=== PATIENT | female | born 1950 | race African-American/Black ===

== ENCOUNTER → 2019-02-20 | Outpatient (CLI) | payer MEDICARE, OTHER ==
[2017-06-30 11:00] VITALS: BP 120/75
[~2019-02-20] MED LIST: AMIT25TA PO; ASPI325T8 PO; CYAN1TAB21 PO; ESTR0.5T PO; FERR325T14 PO; LISI-334 PO; METF500T16 PO
--- NOTE | 2019-02-20 13:15 | RAD ---
MRI of the cervical spine without contrast 02/20/2019 CLINICAL HISTORY: Low back pain worsening over last several months. TECHNIQUE: Unenhanced T1-weighted and T2-weighted sagittal and axial and inversion recovery sagittal images of the lumbar spine were obtained. FINDINGS: Mild S-shaped curvature of the thoracolumbar spine is seen. Degenerative signal changes are seen involving all of the disks of the lumbar spine. Degenerative signal changes are seen within the marrow surrounding these discs. The conus medullaris is within normal limits in morphology, position, and signal characteristics. A 1.4 cm perineural cyst is seen within the sacral spinal canal. At the L1-2, L2-3 and L3-4 disc spaces there are minimal generalized disc bulge. Degenerative changes are seen involving the facet joints bilaterally. There is mild ligamentum flavum hypertrophy bilaterally. These findings do not result in significant central spinal canal or neural foraminal stenosis. At the L4-5 disc space there is a mild generalized disc bulge. Superimposed on this disc bulge is a left paracentral focal disc protrusion. This measures 2 mm in AP diameter. Degenerative changes are seen involving the facet joints bilaterally. There is moderate ligamentum flavum hypertrophy bilaterally. There is prominence of the posterior epidural fat. These findings when combined result in mild central spinal canal stenosis. No neural foraminal stenosis is seen. At the L5-S1 disc space there is a mild generalized disc bulge. Degenerative changes are seen involving the facet joints bilaterally. There is mild ligamentum flavum hypertrophy bilaterally. These findings when combined do not result in significant central spinal canal stenosis. No neural foraminal stenosis is seen. IMPRESSION: The changes of degenerative disc disease are seen involving the lumbar spine. These findings result in mild central spinal canal stenosis at L4-5. No neural foraminal stenosis is seen. Electronically signed by: Aiden Cruz MD (02/20/2019 1:12 PM) [email or web address]
== END | disposition home or self-care (01) ==
LOC: MRI 10:58
PROVIDERS: ATTEND Family Medicine
DX: M47.27 Other spondylosis with radiculopathy, lumbosacral region (principal); M51.37 Other intervertebral disc degeneration, lumbosacral region; M48.07 Spinal stenosis, lumbosacral region; M51.26 Other intervertebral disc displacement, lumbar region
CPT/HCPCS: 72148

== ENCOUNTER → 2019-05-25 | Outpatient (CLI) | payer MEDICARE, OTHER ==
[2017-06-30 11:00] VITALS: BP 120/75
[~2019-05-25] MED LIST changes: +BUPIVACAINE MPF 0.25% 10 ML VIAL. ONE; +DOCU-150 PO; +IOHEXOL 180 MG/ML 10 ML VIAL. ONE; +methylPREDNISolone ACETATE 40 MG/ML VIAL. ONE; +methylPREDNISolone ACETATE 80 MG/ML VIAL. ONE
--- NOTE | 2019-05-25 20:31 | PAIN ---
DATE OF SERVICE: 05/25/2019 INITIAL CONSULTATION FOR PAIN CLINIC CHIEF COMPLAINT: Low back pain. HISTORY OF PRESENT ILLNESS: This is a 69-year-old female who presents with history of pain in the low back for about 3 years, worse over the past 6-7 months. The patient reports it is worse with walking, standing, and changing positions and better with sitting or lying down. It does not awaken her from sleep at night. It is mainly across the low back itself but into the legs and into the thighs occasionally. The patient reports into the lateral anterior thighs becoming more noticeable, but mainly just across the low back. The patient reports it is intermittent in intensity, worse with walking and standing as noted, and better with sitting or lying down without specific radiation currently. The patient rates her disability rating from 0-10 with 10 being the worst, at 6 with family home responsibilities and recreation, 5 with social activity and occupation, 4 with sexual behavior, 3 with self-care, and 0 with life support activities. The patient did have MRI scan of the lumbar spine showing some degenerative disk disease involving the entire lumbar spine, mild central spinal canal stenosis at L4-5, and mild generalized disk bulge at L3-4, L4-5, and L5-S1 with a left paracentral focal disk protrusion at L4-5 as well. The patient reports no loss of motor function, but significant fatigability of both the lower extremities when ambulating. PAST MEDICAL HISTORY: Significant for type 2 diabetes, hypertension, and arthritis. PREVIOUS SURGERY: Includes hysterectomy. CURRENT MEDICATIONS: Include lisinopril, metformin, and docusate. ALLERGIES: The patient has no known drug allergies. FAMILY HISTORY: Significant for no major medical problems or conditions that she lists. SOCIAL HISTORY: The patient does not smoke, quit many years ago. Drinks socially, maybe once every 5 to 6 weeks. She does not use any illegal, illicit, or recreational drugs. She is , lives with her spouse, lives locally in [place] and is currently retired. REVIEW OF SYSTEMS: All systems reviewed and otherwise negative. It is complete, full, and well documented on the patient's chart. PHYSICAL EXAMINATION: VITAL SIGNS: The patient's blood pressure is 154/75, pulse 87, respirations 18, temperature 97.9 degrees Fahrenheit, height is 5 feet 2 inches, and weight 185 pounds. GENERAL: The patient is awake, alert, and oriented, appropriate and very pleasant demeanor. The patient is accompanied by her spouse. HEENT: Normocephalic and atraumatic. Extraocular movements are intact and symmetrical. Oral cavity shows mucous membranes moist and pink. Dentition is intact. NECK: Anterior throat supple without palpable lymphadenopathy noted. Swallow reflex symmetrical. CHEST: Normal on inspection. Breath sounds are clear bilaterally. HEART: S1, S2 clear. No murmurs auscultated. ABDOMEN: Soft, nontender, and nondistended. BACK: Spine grossly in the midline, slight exaggerated thoracic kyphosis and minor flattening of lumbar lordotic curvature. Lumbar paraspinous muscle shows symmetrical on inspection and with palpation shows some moderate tenderness in the inferior aspect of the lumbar paraspinous musculature but only diffusely without radiation. The patient has good rotational motion of lumbar spine both laterally as well as extension and flexion with some moderate tenderness with extension noted in the low back itself and forward flexion performed at 45 degrees without difficulty. Right and left lateral rotation greater than 10 degrees is mildly tender bilaterally but equal. The patient's spinous processes are nontender with palpation of the sacroiliac regions and posterior superior iliac spines. EXTREMITIES: The patient's lower extremities show deep tendon reflexes at 2+ in the patellar and 1+ in tendo-calcaneus tendons. Motor exam is strong with 5/5 dorsiflexion, extension, quadriceps, and hamstring flexion. Peripheral pulses are 1+ in posterior tibia. No peripheral edema is noted. Lower extremities are warm and dry to touch, equal in color and appearance. Straight leg raise noted to be negative for reproduction of radicular symptoms bilaterally. Gaenslen and David maneuvers are negative bilaterally as well. The patient is able to stand, stand on her toes without significant difficulty or loss of balance, walks with a normal appearing gait, does not appear to favor the right or left lower extremity significantly with ambulating, not using any assistive devices. SKIN: Warm and dry. Good turgor. No edema. No sores, rashes, or bruising throughout. IMPRESSION: 1. This is a 69-year-old female with approximate 3-year history of increasing pain in low back and the bilateral lower extremities to some extent, worse with extension of the lumbar spine now, consistent with some facet syndrome of the lumbar spine. 2. MRI scan of lumbar spine as noted. 3. Arthritis. 4. Hypertension. PLAN: Options were discussed with the patient including conservative medical management, physical therapy, and interventional techniques and she would like to pursue interventional techniques. We discussed bilateral L4-5 and L5-S1 facet joint injections using description as well as anatomical models to describe the procedure. Risks were then discussed including but not limited to bleeding, infection, possibility of epidural hematoma, subsequent neurological compromise, dural puncture, headaches, spinal cord and/or nerve damage, side effects of steroid medication, and poor results regarding pain control. The patient understands and wished to proceed. The patient will return to clinic in approximately 2 weeks for followup. She was counseled on return appointment, activity level, and side effects to be aware of. DIAGNOSIS: Lumbar and lumbosacral spondylosis. PROCEDURE: Bilateral L4-5 and L5-S1 facet joint injection using C-arm fluoroscopic guidance under sterile prep and drape using local anesthetic. MEDICATION INJECTED: A total of 120 mg of Depo-Medrol plus 4 mL of 0.25% bupivacaine after negative aspiration at each injection site and a 2 mL total of contrast. CONDITION AT DISCHARGE: Stable. The patient tolerated the procedure well and had no complications. JAMES MACE MD DR: MANUEL/anjelica JOB#: [id number] / [id number] ANGELO Garza DO
== END ==
LOC: PNCL 08:56
PROVIDERS: ATTEND Anesthesiology
DX: M47.817 Spondylosis without myelopathy or radiculopathy, lumbosacral region (principal); I10 Essential (primary) hypertension; E11.9 Type 2 diabetes mellitus without complications; Z90.710 Acquired absence of both cervix and uterus; Z87.891 Personal history of nicotine dependence; Z72.89 Other problems related to lifestyle; Z87.39 Personal history of other diseases of the musculoskeletal system and connective tissue; Z79.84 Long term (current) use of oral hypoglycemic drugs
CPT/HCPCS: 64493; 64494; J1030; J1040; J3490; Q9965

== ENCOUNTER → 2019-06-08 | Outpatient (CLI) | payer MEDICARE, OTHER ==
[2017-06-30 11:00] VITALS: BP 120/75
[~2019-06-08] MED LIST changes: -BUPIVACAINE MPF 0.25% 10 ML VIAL. ONE; -IOHEXOL 180 MG/ML 10 ML VIAL. ONE; -methylPREDNISolone ACETATE 40 MG/ML VIAL. ONE; -methylPREDNISolone ACETATE 80 MG/ML VIAL. ONE
--- NOTE | 2019-06-08 11:31 | PAIN ---
DATE OF SERVICE: 06/08/2019 PROGRESS NOTE FOR PAIN CLINIC DIAGNOSES: Lumbar spinal stenosis, lumbar degenerative disk disease, and lumbar and lumbosacral spondylosis. HISTORY OF PRESENT ILLNESS: The patient is a 69-year-old female who returns for followup status post bilateral lumbar facet injections, L4-L5 and L5-S1. The patient reports she did very well about 95% improvement and the pain is still staying away to this day. The patient reported about 2 weeks since the injection. The patient reports she is sleeping much better, doing household activities with greater ease and comfort. It does not awaken her from sleep at night. The patient reports it is doing quite a bit better. She had one incident about a week ago where she was carrying some groceries from the car to the house with several trips walking and it caused some pain in the back, but it subsided after about 30 minutes. The patient reports by the next day, the pain was fine and well controlled. The patient reports no new motor or sensory deficits, no new bowel or bladder incontinence. Rates her pain as 5 on a scale of 10 at its worst over the past week and while also carrying groceries, otherwise is 0 on average and 0 at its least and is 0 today. The patient reports it is shooting pain across the low back at times and some noticeable pain in the right leg on the lateral anterior thigh, but only infrequently. The patient reports no new motor or sensory deficits, no new bowel or bladder incontinence or other complaints. PHYSICAL EXAMINATION: VITAL SIGNS: The patient's blood pressure 163/98, pulse 81, respirations 16, temperature 97.5 degrees Fahrenheit, weight is 186 pounds. GENERAL: The patient is awake, alert, oriented, appropriate, very pleasant demeanor. HEENT: Shows normocephalic, atraumatic. Extraocular movements are intact and symmetrical. Oral cavity: Mucous membranes moist and pink. Dentition is intact. NECK: Shows anterior throat supple without palpable lymphadenopathy noted. Swallow reflex symmetrical. CHEST: Shows normal on inspection. Breath sounds clear to auscultation bilaterally. HEART: Shows S1, S2 clear. No murmurs auscultated. ABDOMEN: Obese, soft, nontender, nondistended. No palpable organomegaly is noted. No rebound or guarding demonstrated. BACK: Shows spine grossly in the midline. Lumbar paraspinous muscle shows symmetrical on inspection, on palpation shows some moderate tenderness diffusely, but only diffusely bilaterally without significant radiation. The patient has good rotational motion of lumbar spine, both laterally as well as extension and flexion with some mild tenderness with extension, but not with rotation right or left or with forward flexion. EXTREMITIES: Lower extremities show deep tendon reflexes 2+ in the patellar, 1+ tendo-calcaneus tendons. Motor exam is strong with 5/5 dorsiflexion, extension, quadriceps and hamstring flexion symmetrical. Peripheral pulses are 1+ posterior tibial. No peripheral edema is noted bilaterally. Options were discussed with the patient. The patient's old chart was reviewed as her current medication regimen updated. Current review of systems updated today as well and we will proceed with holding any further injections at this time as the patient is usually doing quite a bit better and would like to hold on any further interventions. We asked her to increase her activity as tolerated. The patient will return to the clinic at this time on as needed basis. JAMES MACE MD DR: MANUEL/anjelica JOB#: [id number] / [id number]
== END | disposition home or self-care (01) ==
LOC: PNCL 10:06
PROVIDERS: ATTEND Anesthesiology
DX: M48.061 Spinal stenosis, lumbar region without neurogenic claudication (principal); M51.36 Other intervertebral disc degeneration, lumbar region; M47.816 Spondylosis without myelopathy or radiculopathy, lumbar region; E66.9 Obesity, unspecified
CPT/HCPCS: G0463

== ENCOUNTER → 2019-09-25 | Outpatient (CLI) | payer MEDICARE, OTHER ==
[2017-06-30 11:00] VITALS: BP 120/75
[~2019-09-25] MED LIST changes: +IOHEXOL 180 MG/ML 10 ML VIAL. ONE; +methylPREDNISolone ACETATE 40 MG/ML VIAL. ONE; +methylPREDNISolone ACETATE 80 MG/ML VIAL. ONE
--- NOTE | 2019-09-25 12:20 | PAIN ---
DATE OF SERVICE: PROGRESS NOTE FOR PAIN CLINIC DIAGNOSES: Lumbar radiculopathy with lumbar spinal stenosis, lumbar degenerative disk disease and lumbar spondylosis. HISTORY OF PRESENT ILLNESS: The patient is a 69-year-old female who returns for followup status post previous lumbar facet joint injections 05/25/2019 with about 95% improvement. The patient was seen in May, after that was doing very well. We decided to hold off any further treatment at that time. 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 The patient reports this is different pain, is in the left leg greater than the right, but some on the right as well, mostly on the left anterior aspect in the left thigh and sometimes below the knee. The patient reports no new motor or sensory deficits; however, no new bowel or bladder incontinence. Describes the pain as aching and sharp that is shooting, cramping and burning across the low back. PHYSICAL EXAMINATION: VITAL SIGNS: The patient's blood pressure is 142/108, pulse 103, respirations 18, temperature 97.3 degrees Fahrenheit, height is 5 feet 2 inches, weighs 189 pounds. GENERAL: The patient is awake, alert, oriented, appropriate, very pleasant demeanor. The patient is accompanied by her . HEENT: Shows normocephalic, atraumatic. Extraocular movements are intact and symmetrical. Oral cavity: Mucous membranes moist and pink. Dentition is intact. NECK: Shows anterior throat supple without palpable lymphadenopathy noted. Swallow reflex symmetrical. CHEST: Shows normal on inspection. Breath sounds clear bilaterally. HEART: Shows S1, S2 clear. No murmurs auscultated. ABDOMEN: Soft, nontender, nondistended. No palpable organomegaly is noted. No rebound or guarding demonstrated. BACK: Shows spine grossly in the midline. Normal appearing thoracic kyphosis and lumbar lordotic curvature. Lumbar paraspinous muscle shows symmetrical on inspection, on palpation some moderate tenderness diffusely bilaterally, only diffusely without significant radiation. The patient has good rotational motion of lumbar spine, both laterally as well as extension and flexion with some moderate tenderness with extension and axial loading, but better with forward flexion. Right and left lateral rotation is nontender. EXTREMITIES: Lower extremities show deep tendon reflexes 2+ in the patellar, 1+ tendo-calcaneus tendons. Motor exam is strong with 5/5 dorsiflexion, extension, quadriceps and hamstring flexion is symmetrical. Peripheral pulses are 1+. No peripheral edema is noted. Options were discussed with the patient. The patient's old chart was reviewed. Current medication regimen updated. Current review of systems updated today as well. We will proceed with a lumbar epidural steroid injection today with fluoroscopic guidance. Risks were discussed including, but not limited to bleeding, infection, possibility of epidural hematoma, subsequent neurological compromise, dural puncture, headaches, spinal cord and/or nerve damage, side effects of steroid medication and poor results regarding pain control. The patient understands and wished to proceed. The patient will return to clinic in approximately 2 weeks for followup. Counseled as to return appointment, activity level and side effects to be aware of. DIAGNOSES: Lumbar radiculopathy with lumbar degenerative disk disease, lumbar spinal stenosis and lumbar spondylosis. PROCEDURE: Lumbar epidural steroid injection, translaminar approach L4-L5 level using C-arm fluoroscopic guidance under sterile prep and drape using local anesthetic. MEDICATION INJECTED: A total of 120 mg Depo-Medrol plus 10 mL of preservative-free normal saline and 2 mL of contrast. CONDITION AT DISCHARGE: Stable. The patient tolerated the procedure well, had no complications. JAMES MACE MD DR: MANUEL/anjelica JOB#: [id number] / [id number]
== END | disposition home or self-care (01) ==
LOC: PNCL 09:21
PROVIDERS: ATTEND Anesthesiology
DX: M51.16 Intervertebral disc disorders with radiculopathy, lumbar region (principal); M47.26 Other spondylosis with radiculopathy, lumbar region; M48.061 Spinal stenosis, lumbar region without neurogenic claudication; Z98.890 Other specified postprocedural states
CPT/HCPCS: 62323; J1030; J1040; Q9965

== ENCOUNTER → 2019-10-09 | Outpatient (CLI) | payer MEDICARE, OTHER ==
[2017-06-30 11:00] VITALS: BP 120/75
[~2019-10-09] MED LIST changes: -IOHEXOL 180 MG/ML 10 ML VIAL. ONE; -methylPREDNISolone ACETATE 40 MG/ML VIAL. ONE; -methylPREDNISolone ACETATE 80 MG/ML VIAL. ONE
--- NOTE | 2019-10-09 10:44 | PAIN ---
DATE OF SERVICE: 10/09/2019 PROGRESS NOTE FOR PAIN CLINIC DIAGNOSES: Lumbar radiculopathy with lumbar spinal stenosis, lumbar degenerative disk disease, and lumbar spondylosis. HISTORY OF PRESENT ILLNESS: The patient is a 69-year-old female who returns for followup status post lumbar facet joint injections as well as recently lumbar epidural steroid injection. The patient reports about 90% improvement after the last injection which was the epidural steroid injection in the low back and left leg. The patient reports still some pain in the left leg, but much better than it was. She has increased her distance walking, doing work activities, home activities with much greater ease and comfort, and sleeping well at night. The patient reports no new motor or sensory deficits and no new changes. The patient reports the pain is a 5 on a scale of 10 at its worst, 5 on average, and 0 at its least and is 0 today. The patient reports the pain in the back. It can be sharp and aching with radiating pain in the left leg, but only very infrequent now and she has her increased activity with greater ease and comfort. The patient reports no new motor or sensory deficits and no new bowel or bladder incontinence. She still has some weakness sensation in the left leg at times, but not as painful at all. PHYSICAL EXAMINATION: VITAL SIGNS: The patient's blood pressure is 140/114, pulse 79, respirations 18, temperature 97.8 degrees Fahrenheit, height is 5 feet 2 inches, and weight is 189 pounds. GENERAL: The patient is awake, alert, oriented, and appropriate with very pleasant demeanor. HEENT: Normocephalic and atraumatic. Extraocular movements are intact and symmetrical. Oral cavity: Mucous membranes are moist and pink. Dentition is intact. NECK: Anterior throat supple without palpable lymphadenopathy noted. Swallow reflex symmetrical. CHEST: Normal on inspection. Breath sounds clear to auscultation bilaterally. HEART: S1, S2 clear. No murmurs auscultated. ABDOMEN: Soft, nontender, and nondistended. No palpable organomegaly is noted. No rebound or guarding demonstrated. BACK: Spine grossly in the midline. Slight exaggeration of thoracic kyphosis and minor flattening of lumbar lordotic curvature. Lumbar paraspinous muscle shows symmetrical on inspection and with palpation shows some moderate tenderness diffusely bilaterally going diffusely without significant radiation. The patient has good rotational motion of lumbar spine, both laterally as well as extension and flexion without difficulty. EXTREMITIES: Lower extremities show deep tendon reflexes 2+ in the patellar and 1+ tendo-calcaneus tendons. Motor exam is strong with 5/5 dorsiflexion, extension, quadriceps, and hamstring flexion and symmetrical. Peripheral pulses are 1+ in posterior tibia. No peripheral edema is noted bilaterally. Options were discussed with the patient. The patient's old chart was reviewed as her current medication regimen updated. Current review of systems updated today as well. We will hold actually on further injections, as the patient is doing quite a bit better. We would like to wait on any further injections. I will encourage the patient to increase activity as tolerated, maintain stretching and strengthening exercises, and return to clinic at this time on as needed basis. JAMES MACE MD DR: MANUEL/anjelica JOB#: [id number] / [id number]
== END | disposition home or self-care (01) ==
LOC: PNCL 09:27
PROVIDERS: ATTEND Anesthesiology
DX: M47.26 Other spondylosis with radiculopathy, lumbar region (principal); M51.16 Intervertebral disc disorders with radiculopathy, lumbar region; M48.061 Spinal stenosis, lumbar region without neurogenic claudication
CPT/HCPCS: G0463

== ENCOUNTER → 2021-05-07 | Outpatient (CLI) | payer MEDICARE, OTHER ==
[2017-06-30 11:00] VITALS: BP 120/75
[~2021-05-07] MED LIST changes: -DOCU-150 PO; +DOCU-158 PO; -LISI-334 PO; +LISI20TA18 PO
--- NOTE | 2021-05-07 16:24 | KCIC ---
INDICATION: Screening for osteopenia/osteoporosis. Reason: LLQ ABDOMINAL PAIN, POSTMENOPAUSAL DISORD ERS / Spl. Instructions: / History: COMPARISON: None. TECHNIQUE: Bone densitometry was performed through the lumbar spine and proximal femur. IMPRESSION: Lumbar Spine: BMD: 1.1 T-Score: 0.5 Range: Normal Proximal Femur: BMD: 0.7 T-Score: -1.8 Range: Osteopenic World Health Organization Criteria for Bone Density: T-Score: > -1.0: Normal Range < -1.0 to -2.5: Osteopenic Range < -2.5: Osteoporotic Range Electronically signed by: Rocco Escobar MD (05/07/2021 4:21 PM) [id number]
--- NOTE | 2021-05-07 17:11 | KCIC ---
CT ABDOMEN+PELVIS WO History: Left lower quadrant pain, bloating, constipation, bloody stools. Comparison: CT abdomen and pelvis 06/27/2017. Technique: Noncontrast CT of the abdomen and pelvis. Findings: The lung bases are clear. Mild coronary artery calcification. Calcification of the mitral annulus. Sm all sliding hiatal hernia. The liver is unremarkable. Status post cholecystectomy. Normal pancreas, spleen and adrenal glands. F etal lobulations of the kidneys. Tiny approximately 7 mm fat-containing lesion in the left kidney con sistent with angiomyolipoma. Mild bilateral perinephric fat stranding, new from comparison. No hydron ephrosis or nephrolithiasis. Unremarkable ureters. Decompressed bladder is within normal limits. Stat us post hysterectomy. Small sliding hiatal hernia as above. Stomach is otherwise unremarkable. The small bowel is within no rmal limits. Normal appendix. Heavy transverse and descending colon diverticulosis. No wall thickenin g or pericolonic inflammatory changes to suggest diverticulitis. No free air or free fluid. No abdominal pelvic adenopathy. Atherosclerotic calcification of the aorta and iliac arteries. Fat-containing umbilical hernia. Degenerative changes of the lumbar spine. Impression: 1. Mild bilateral perinephric fat stranding, new from comparison may represent chronic changes versu s sequela of pyelonephritis. Correlate with urinalysis. No hydronephrosis or nephrolithiasis. 2. Approximately 7 mm left renal angiomyolipoma. 3. Colonic diverticulosis without evidence of diverticulitis. ------ Exposure: One or more of the following individualized dose reduction techniques were utilized for thi s examination: 1. Automated exposure control 2. Adjustment of the mA and/or kV according to patient size 3. Use of iterative reconstruction technique. Electronically signed by: Daniel Rock MD (05/07/2021 5:08 PM) [facility]
== END ==
LOC: KCIC DEXA 13:34
PROVIDERS: ATTEND Family Medicine
DX: D17.71 Benign lipomatous neoplasm of kidney (principal); K57.30 Diverticulosis of large intestine without perforation or abscess without bleeding; I70.0 Atherosclerosis of aorta; K44.9 Diaphragmatic hernia without obstruction or gangrene; K42.9 Umbilical hernia without obstruction or gangrene; I25.10 Atherosclerotic heart disease of native coronary artery without angina pectoris; I34.0 Nonrheumatic mitral (valve) insufficiency; K59.00 Constipation, unspecified; M47.816 Spondylosis without myelopathy or radiculopathy, lumbar region; M85.88 Other specified disorders of bone density and structure, other site; Z90.49 Acquired absence of other specified parts of digestive tract; Z90.710 Acquired absence of both cervix and uterus
CPT/HCPCS: 74176; 77080